=== PATIENT | female | born 1990 | race African-American/Black ===

== ENCOUNTER 2016-09-20 17:49 | Emergency (ER) | payer SELFPAY ==
[2016-09-20] MEDS ORDERED: NO HOME MEDICATION XX (18:09)
[2016-09-20 18:39] LABS: URINE APPEARANCE HAZY; URINE BILIRUBIN NEGATIVE (NEG); URINE BLOOD NEGATIVE (NEG); URINE COLOR YELLOW; URINE GLUCOSE (UA) NEGATIVE (NEG); URINE KETONE NEGATIVE (NEG); URINE LEUKOCYTE ESTERASE POSITIVE (NEG); URINE MUCUS 2+; URINE NITRITE NEGATIVE (NEG); URINE PROTEIN SMALL (NEG)
[2016-09-20 18:40] LABS: URINE BACTERIA 1+; URINE EPITHELIAL CELLS 15-25 /[HPF] (0-10)
[2016-09-20] MEDS ORDERED: PRENATAL-U CAPS1 CAP PO (18:58)
[2016-09-20] MEDS ORDERED: MACROBID 100 M100 M1 PO (18:58)
== END 2016-09-20 19:06 ==
LOC: EDMED 17:49
PROVIDERS: Nurse Practitioner Family
DX: O23.41 Unspecified infection of urinary tract in pregnancy, first trimester (principal); Z32.01 Encounter for pregnancy test, result positive; Z3A.00 Weeks of gestation of pregnancy not specified